=== PATIENT | male | born 1985 | race Caucasian/White ===

== ENCOUNTER 2017-01-09 00:25 | Emergency (ER) | payer SELFPAY ==
[~2017-01-09] VITALS: Ht 182.9 cm; Wt 146.4 kg
--- OUTSIDE RECORDS SUMMARY | 2017-01-09 00:29 | XMS REPORT | Referral Summary ---
Author Author [facility] Organization [facility] Address Unknown Phone Unavailable Care Team Providers Care Gameplay Programmer Name Role Phone No PCP, Pt States Primary Care Physician [phone] Encounter VC Date(s): 08/17/16 - 08/17/16 [facility] [address] [place] [address] [phone] Discharge Diagnosis: Hematemesis Discharge Diagnosis: Chest wall contusion Discharge Disposition: 01-Home or Self Care Attending Physician: Wilfred Orlando DO Admitting Physician: Wilfred Orlando DO Vital Signs Most recent to 1 oldest [Reference Range]: Temperature Oral 36.8 degC [35.8-37.3 degC] (08/17/16 12:04 AM) Peripheral Pulse 86 bpm Rate [60-100 bpm] (08/17/16 3:07 AM) Respiratory Rate 17 br/min [14-20 br/min] (08/17/16 3:07 AM) Blood Pressure 130/97 mmHg [90-140/60-90 mmHg] (08/17/16 3:07 AM) SpO2 98 % (08/17/16 3:07 AM) Problem List Condition Effective Dates Status Health Status Informant Stroke(Confirmed) Active patient Chest wall Active contusion(Confirmed) Hematemesis(Confirme Active d) HTN(Confirmed) Active patient Obesity Active (disorder)(Confirmed ) Tobacco Active patient user(Confirmed) Allergies, Adverse Reactions, Alerts Substance Reaction Severity Status Bee Stings anaphylaxis Severe Active cephalexin vomiting Active Dilaudid headaches Severe Active morphine anaphylaxis Severe Active Medications amLODIPine 10 mg oral tablet 1 tabs, Oral, Daily, # 30 tabs, 0 Refill(s) Start Date: 09/14/14 Status: Ordered Carafate 1 g oral tablet 2 g 2 tabs, Oral, QID, # 240 tabs, 0 Refill(s) Start Date: 08/17/16 Status: Ordered ibuprofen 0 Refill(s) Start Date: 01/29/14 Status: Ordered ibuprofen 800 mg oral tablet 800 mg 1 tabs, Oral, q8hr, # 30 tabs, 0 Refill(s) Start Date: 07/11/16 Status: Ordered LORazepam 0.5 mg oral tablet 0.5 tabs, Oral, Once, 0 Refill(s) Start Date: 11/20/14 Status: Ordered naproxen 250 mg oral tablet 1 tabs, Oral, BID, as needed for pain, Sup Md Figueroa, # 14 tabs, 0 Refill(s) Start Date: 11/20/14 Stop Date: 11/27/14 Status: Ordered Pepcid 20 mg oral tablet 20 mg 1 tabs, Oral, BID, # 60 tabs, 0 Refill(s) Start Date: 08/17/16 Status: Ordered potassium chloride 20 mEq oral tablet, extended release 20 mEq 1 tabs, Oral, BID, # 30 tabs, 0 Refill(s) Start Date: 08/17/16 Status: Ordered PriLOSEC 40 mg oral delayed release capsule 40 mg 1 caps, Oral, Daily, # 30 caps, 0 Refill(s) Start Date: 08/17/16 Status: Ordered Results Hematology Most recent to 1 oldest [Reference Range]: WBC [4.8-10.8 8.3 10*3/uL 10*3/uL] (08/17/16 1:08 AM) RBC [4.60-6.20] 5.13 (08/17/16 1:08 AM) Hgb [14.0-18.0 13.8 gm/dL gm/dL] *LOW* (08/17/16 1:08 AM) Hct [42.0-52.0 %] 42.5 % (08/17/16 1:08 AM) MCV [82.0-99.0 fL] 82.8 fL (08/17/16 1:08 AM) MCH [27.0-32.0 pg] 26.9 pg *LOW* (08/17/16 1:08 AM) MCHC [32.0-36.0 32.5 gm/dL gm/dL] (08/17/16 1:08 AM) RDW [11.5-14.5 %] 14.7 % *HI* (08/17/16 1:08 AM) Platelet [150-400 304 10*3/uL 10*3/uL] (08/17/16 1:08 AM) MPV [9.4-12.3 fL] 9.0 fL *LOW* (08/17/16 1:08 AM) Immature 0.1 % Granulocytes (08/17/16 1:08 AM) [0.0-1.0 %] Neutrophils [51-75 62 % %] (08/17/16 1:08 AM) Lymphocytes [20-46 26 % %] (08/17/16 1:08 AM) Monocytes [4-11 %] 9 % (08/17/16 1:08 AM) Eosinophils [0-4 %] 3 % (08/17/16 1:08 AM) Basophils [0-2 %] 0 % (08/17/16 1:08 AM) Neutro Absolute 5.19 10*3 [1.90-7.00 10*3] (08/17/16 1:08 AM) Lymph Absolute 2.14 10*3 [0.80-3.30 10*3] (08/17/16 1:08 AM) [place] Absolute 0.76 10*3 [0.30-1.00 10*3] (08/17/16 1:08 AM) Eos Absolute 0.22 10*3 [0.00-0.50 10*3] (08/17/16 1:08 AM) Baso Absolute 0.01 10*3 [0.00-0.20 10*3] (08/17/16 1:08 AM) Chemistry Most recent to 1 oldest [Reference Range]: Sodium Lvl [136-144 135 mEq/L mEq/L] *LOW* (08/17/16 1:08 AM) Potassium Lvl 2.6 mEq/L 1 [3.6-5.1 mEq/L] *LOW* (08/17/16 2:33 AM) Chloride [99-109 100 mEq/L mEq/L] (08/17/16 1:08 AM) CO2 [22-32 mEq/L] 24 mEq/L (08/17/16 1:08 AM) AGAP [3-20] 11 (08/17/16 1:08 AM) BUN [4-20 mg/dL] 11 mg/dL (08/17/16 1:08 AM) Glucose Lvl [70-100 109 mg/dL mg/dL] *HI* (08/17/16 1:08 AM) Creatinine Lvl 1.60 mg/dL [0.64-1.27 mg/dL] *HI* (08/17/16 1:08 AM) eGFR [>60] 50 2 *ABN* (08/17/16 1:08 AM) Calcium Lvl 8.9 mg/dL [8.6-10.0 mg/dL] (08/17/16 1:08 AM) Albumin Lvl [3.5-4.8 4.0 gm/dL gm/dL] (08/17/16 1:08 AM) Total Protein 6.9 gm/dL [6.1-7.9 gm/dL] (08/17/16 1:08 AM) Globulin [1.9-4.3 2.9 gm/dL gm/dL] (08/17/16 1:08 AM) ALT [17-63 U/L] 29 U/L (08/17/16 1:08 AM) AST [15-41 U/L] 101 U/L *HI* (08/17/16 1:08 AM) Alk Phos [26-104 75 U/L U/L] (08/17/16 1:08 AM) Bili Total [0.2-1.2 3.0 mg/dL 3 mg/dL] *HI* (08/17/16 1:08 AM) Creatinine Venous 0.8 mg/dL [0.7-1.2 mg/dL] (08/17/16 1:32 AM) 1Result Comment: Hemolyzed specimen. The following tests may be affected: ALT, AST, Ammonia, Iron, Potassium, LDH, Amylase, CPK, and Total Bilirubin. 2Result Comment: Multiply eGFR results by 1.21 for race. 3Result Comment: Naproxen, specifically the metabolite O-desmethylnaproxen, may cause spurious elevation in Total Bilirubin levels. Urinalysis Most recent to 1 oldest [Reference Range]: Type Venous (08/17/16 1:03 AM) Blood Bank Results Most recent to 1 oldest [Reference Range]: ABO/Rh A POS (08/17/16 1:08 AM) Antibody Screen Tube NEG (08/17/16 1:08 AM) Immunizations No data available for this section Procedures Procedure Date Related Diagnosis Body Site Ankle joint operations Knee joint operation Social History Social History Type Response Smoking Status Current every day smoker; Tobacco use per day: Less than 1/4 pack1 1Quit x12 years ago Assessment and Plan No data available for this section
--- OUTSIDE RECORDS SUMMARY | 2017-01-09 00:29 | XMS REPORT | Referral Summary ---
Author Author [facility] Organization [facility] Address Unknown Phone Unavailable Care Team Providers Care Cap Sewer Name Role Phone No PCP, Pt States Primary Care Physician [phone] Encounter VC Date(s): 07/11/16 - 07/11/16 [facility] [address] [place] [address] Discharge Diagnosis: Left ankle sprain Discharge Diagnosis: Left ankle pain Discharge Disposition: 01-Home or Self Care Attending Physician: Louis Cano MD Admitting Physician: Louis Cano MD Vital Signs Most recent to 1 oldest [Reference Range]: Temperature Oral 36.7 degC [35.8-37.3 degC] (07/11/16 1:49 PM) Peripheral Pulse 85 bpm Rate [60-100 bpm] (07/11/16 3:43 PM) Respiratory Rate 18 br/min [14-20 br/min] (07/11/16 3:43 PM) Blood Pressure 148/79 mmHg [90-140/60-90 mmHg] *HI* (07/11/16 3:43 PM) SpO2 97 % (07/11/16 3:43 PM) Problem List Condition Effective Dates Status Health Status Informant Stroke(Confirmed) Active patient HTN(Confirmed) Active patient Obesity Active (disorder)(Confirmed ) Tobacco Active patient user(Confirmed) Allergies, Adverse Reactions, Alerts Substance Reaction Severity Status Bee Stings anaphylaxis Severe Active cephalexin vomiting Active Dilaudid headaches Severe Active morphine anaphylaxis Severe Active Medications amLODIPine 10 mg oral tablet 1 tabs, Oral, Daily, # 30 tabs, 0 Refill(s) Start Date: 09/14/14 Status: Ordered ibuprofen 0 Refill(s) Start Date: [...] Date: 11/20/14 Stop Date: 11/27/14 Status: Ordered Results No data available for this section Immunizations No data available for this section Procedures Procedure Date Related Diagnosis Body Site Ankle joint operations Knee joint operation Social History Social History Type Response Smoking Status Current every day smoker; Tobacco use per day: Less than 1/4 pack1 1Quit x12 years ago Assessment and Plan No data available for this section
--- OUTSIDE RECORDS SUMMARY | 2017-01-09 00:29 | XMS REPORT | Continuity of Care Document ---
Author Author [facility] Organization [facility] Address Unknown Phone Unavailable Allergies Active Description Code Type Severity Reaction Onset Reported/Identified Relationship to Patient Clinical Status Yes cephalexin NKMA N/A vomiting 12/26/2013 Yes Bee Stings NKMA Severe anaphylaxis 09/14/2014 Yes Dilaudid NKMA Severe headaches 09/14/2014 Yes morphine NKMA Severe anaphylaxis 09/14/2014 Medications Medication Packaging Start Date Stop Date Route Dosage Sig ibuprofen(ibuprofen) 01/29/2014 HYDROcodone-acetaminophen(HYDROcodone-acetaminophen 5 mg- 325 mg oral tablet) 1 tabs 01/29/2014 02/09/2014 Oral 1 tabs, Oral, q4hr, 12 tabs, PRN: Pain Moderate (4-6) penicillin V potassium(penicillin V potassium 500 mg oral tablet) 1 tabs 201302/05/2014 Oral 500 mg 1 tabs, Oral, q6hr, 40 tabs clindamycin(clindamycin 150 mg oral capsule) 2 caps 01/29/2014 02/08/2014 Oral 300 mg 2 caps, Oral, QID, for infection, 80 caps amLODIPine(amLODIPine 10 mg oral tablet) 1 tabs 09/14/2014 Oral 10 mg 1 tabs, Oral, Daily, 30 tabs amLODIPine(amLODIPine) 1 tabs 09/14/2014 09/14/2014 Oral 10 mg 10 mg, Oral, Once LORazepam(LORazepam 0.5 mg oral tablet) 0.5 tabs 11/20/2014 Oral 0.25 mg 0.5 tabs, Oral, Once ondansetron(Zofran) 2 mL 11/20/2014 11/20/2014 IV Push 4 mg 4 mg, IV Push, Once ketorolac(Toradol) 1 mL 11/20/2014 11/20/2014 IV Push 30 mg 30 mg , IV Push, Once cyclobenzaprine(cyclobenzaprine 10 mg oral tablet) 1 tabs 11/20/2014 11/25/2014 Oral 10 mg 1 tabs, Oral, TID, Sup Md Figueroa, 15 tabs, PRN: as needed for spasm naproxen(naproxen 250 mg oral tablet) 1 tabs 11/20/20142014 Oral 250 mg 1 tabs, Oral, BID, Sup Md Figueroa, 14 tabs, PRN: as needed for pain HYDROcodone-acetaminophen([place] 5 mg-325 mg oral tablet) 1 tabs 07/11/2016 07/11/2016 Oral 1 tabs, Oral, Once ibuprofen(ibuprofen 800 mg oral tablet) 1 tabs 07/11/2016 Oral 800 mg 800 mg=1 tabs, Oral, q8hr, 30 tabs, 0 Refill(s) famotidine(Pepcid) 2 mL 08/17/2016 08/17/2016 IV Push 20 mg 20 mg =2 mL, IV Push, Once omeprazole(PriLOSEC 40 mg oral delayed release capsule) 1 caps 08/17/2016 Oral 40 mg 40 mg=1 caps, Oral, Daily, 30 caps, 0 Refill(s) famotidine(Pepcid 20 mg oral tablet) 1 tabs 08/17/2016 Oral 20 mg 20 mg=1 tabs, Oral, BID, 60 tabs, 0 Refill(s) sucralfate(Carafate 1 g oral tablet) 2 tabs 08/17/2016 Oral 2 g 2 g=2 tabs, Oral, QID, 240 tabs, 0 Refill(s) ondansetron(Zofran 4 mg oral tablet) 1 tabs 08/17/20162015 Oral 4 mg 4 mg=1 tabs, Oral, q4hr, PRN: Nausea or Vomiting, 30 tabs, 0 Refill (s) oxyCODONE-acetaminophen(Percocet 7.5/325 oral tablet) 1 tabs 08/17/2016 08/18/2016 Oral 1 tabs, Oral, q6hr, PRN: as needed for pain, 20 tabs, 0 Refill(s) potassium chloride(potassium chloride 20 mEq oral tablet, extended release) 2 tabs 08/17/2016 08/17/2016 Oral 40 mEq 40 mEq=2 tabs, Oral, Once potassium chloride(potassium chloride 20 mEq oral tablet, extended release) 1 tabs 08/17/2016 Oral 20 mEq 20 mEq=1 tabs, Oral, BID, 30 tabs, 0 Refill(s) Problems Date Dx Coded Attending Type Code Diagnosis Diagnosed By 06/15/2012 Chidi Jacobs MD Final 401.9 HYPERTENSION NOS 06/15/2012 Chidi Jacobs MD Final 989.5 TOXIC EFFECT VENOM 06/15/2012 Chidi Jacobs MD External E905.3 HORNET/WASP/BEE STING 12/31/2013 Tor Lees MD Final 278.00 OBESITY NOS 12/31/2013 Tor Lees MD Final 401.9 HYPERTENSION NOS 12/31/2013 Nabeel ALLRED, Tor Final 466.0 ACUTE BRONCHITIS 12/31/2013 Tor Lees MD Final 473.9 CHRONIC SINUSITIS NOS 12/31/2013 Tor Lees MD Final 491.9 CHRONIC BRONCHITIS NOS 12/31/2013 Tor Lees MD Admitting 786.2 COUGH 12/31/2013 Nabeel ALLRED Tor 787.03 VOMITING ALONE 09/15/2014 Evens Champion MD Reason 311 DEPRESSIVE DISORDER, NOT ELSEWHERE CLASSIFIED 09/15/2014 Evens Champion MD Final 401.9 UNSPECIFIED ESSENTIAL HYPERTENSION 09/15/2014 Evens Champion MD Final V62.84 Suicidal ideation 11/21/2014 Reason 787.01 NAUSEA WITH VOMITING 11/21/2014 Final 848.8 OTHER SPECIFIED SITES OF SPRAINS AND STRAINS 07/14/2016 Cano Howard Final F17.210 Nicotine dependence, cigarettes, uncomplicated 07/14/2016 Cano Howard Reason M25.572 Pain in left ankle and joints of left foot 07/14/2016 Cano Howard Final S93.402A Sprain of unspecified ligament of left ankle, initial encounter 07/14/2016 Cano Howard Final X50.9XXA Other and unspecified overexertion or strenuous movements or postures, init 07/14/2016 Cano Howard Final Y92.[address] the [address] of occurrence of the external cause 08/18/2016 Orlando David Final F17.210 Nicotine dependence, cigarettes, uncomplicated 08/18/2016 Orlando David Final K92.0 Hematemesis 08/18/2016 Orlando David Reason R11.2 Nausea with vomiting, unspecified 08/18/2016 Orlando David Final S20.219A Contusion of unspecified front wall of thorax, initial encounter 08/18/2016 Orlando David Final X58.XXXA Exposure to other specified factors, initial encounter Procedures Results Encounters ACCT No. Visit Date/Time Discharge Status Pt. Type Provider Facility Loc./Unit Complaint [id number] 12/31/2013 08:41:00 2013 09:20:00 DIS Emergency Tor Lees MD [facility] [id number] 06/15/2012 14:13:00 2011 15:45:00 DIS Emergency Chidi Jacobs MD [facility]
--- OUTSIDE RECORDS SUMMARY | 2017-01-09 00:29 | XMS REPORT | Referral Summary ---
Author Organization Unknown Address Unknown Phone Unavailable Care Team Providers Care Health Informatics Specialist Name Role Phone No PCP, States Primary Care Physician [phone] Encounter VC Date(s): 09/14/14 - 09/14/[address] [id number] Discharge Diagnosis: Depression Discharge Diagnosis: Suicidal ideation Discharge Diagnosis: Hypertension Discharge Disposition: Home or Self Care Attending Physician: Evens Champion MD Admitting Physician: Evens Champion MD Vital Signs Most recent to 1 oldest [Reference Range]: Temperature Oral 36.8 degC [35.8-37.3 degC] (09/14/14 2:29 PM) Peripheral Pulse 103 bpm Rate [60-100 bpm] *HI* (09/14/14 2:29 PM) Heart Rate Monitored 109 bpm [60-100 bpm] *HI* (09/14/14 4:38 PM) Respiratory Rate 16 br/min [14-20 br/min] (09/14/14 2:29 PM) Blood Pressure 159/98 mmHg [90-140/60-90 mmHg] *HI* (09/14/14 4:38 PM) Mean Arterial 116 mmHg Pressure, Cuff (09/14/14 4:38 PM) Most recent to 1 oldest [Reference Range]: SpO2 96 % (09/14/14 2:29 PM) Problem List Condition Effective Dates Status [...] 0 Refill(s) Start Date: 01/29/14 Status: Ordered Results No data available for this section Immunizations No data available for this section Procedures Procedure Date Related Diagnosis Body Site Ankle joint operations Knee joint operation Social History Social History Type Response Smoking Status Former smoker1 1Quit x12 years ago Assessment and Plan No data available for this section
[2017-01-09 00:33] VITALS: Ht 182.9 cm; Wt 146.4 kg
[2017-01-09] MEDS ORDERED: PROCHLORPERAZINE 10mg/2ml INJECTION IV ONE (00:45)
[2017-01-09] MEDS ORDERED: KETOROLAC 30mg/ml INJECTION IV ONE (00:45)
[2017-01-09] MEDS ORDERED: NORMAL SALINE 1,000 ML IV ONE (00:45)
--- NOTE | 2017-01-09 00:58 | ERPDOC ---
Departure Disposition Decision Date: January 09, 2017 Disposition Decision Time: 02:10 Disposition: 01 DISCHARGED HOME, SELF-CARE Impression Impression Impression: Primary Impression: GERD (gastroesophageal reflux disease) Esophagitis presence: with esophagitis Qualified Codes: K21.0 - Gastro- esophageal reflux disease with esophagitis Additional Impression: Esophageal spasm Severity: Severe Condition: Improved Seen By: Physician only Patient Instructions: Esophageal Spasm (ED), Gastroesophageal Reflux Disease ( ED) Problems/Meds/Labs Reviewed?: Yes Medications reviewed and manag: Yes Additional Instructions: Compazine 10 mg one tablet every 6-8 hours as needed for cramps or nausea Take Prilosec OR Prevacid daily Take Pepcid 40 mg daily Follow up with your doctor in the next week Follow up care ordered?: Yes Mental Status: Alert Scripts Prochlorperazine Maleate (Compazine) 10 Mg Tablet 10 MG PO QID, #30 TAB 0 Refills Prov: LILLIE WRIGHT MD 01/09/17 HPI - Chest Pain General Chief Complaint: Chest Pain Stated Complaint: CHEST PAIN Time Seen by Provider: 00:34 Source: patient Exam Limitations: no limitations HPI - Chest Pain Initial Comments The patient has recently moved from [place] to the [facility], presents tonight with complaints of chest pain. Patient has had epigastric pain all day, with nausea and finally vomiting and radiation of pain into the chest tonight. Patient tried to take a dose of Prevacid and Prilosec together, as well as is small, and vomited it all up. A history of GERD, been given apparently confusing information about what medication to take and how to take it from his previous clinic in [place], quite loopy clinic. According to the patient, he was instructed to use his Pepcid until it ran out, and then uses Prilosec and Prevacid together as needed. Occurred At: home Onset/Timing: Rapid Duration: 6-12 hrs Activities at Onset/Context: rest Location: substernal 1 - Pain and tenderness 2 - Chest Pain Radiation: no radiation Nitro Today/Relief: no nitro taken today Aspirin Treatment Today: contraindicated Prior Chest Pain/Cardiac Caitlyn: no prior chest pain Hx of Similar Symptoms: No Allergies: Coded Allergies: morphine (Verified Allergy, Severe, CARDIAC ARREST, 01/09/17) cephalexin (Verified Allergy, Unknown, dyspnea, 01/09/17) hydromorphone (Verified Allergy, Unknown, MIGRAINE, 01/09/17) Viagra/ED med in past 36 hrs: No Past History Patient Medical History Problem List Updates: Anaphylactic reaction with CVA at 16 years old Morbid obesity GERD Symptomatic hypoglycemia Past Medical History GI: GERD Neurological: CVA Surgical History Denies Surgeries Social History Smoking Status: Never smoker Does patient use chewing tobac: No Second Hand Exposure: No Substance Use Type: does not use Alcohol Intake: none Record Review Pertinent history updated: Yes Review of Systems Constitutional Constitutional: DENIES: appetite decrease, appetite increase, chills, dizziness , fever, weakness ENMT Ears: DENIES: pain Hearing: DENIES: hearing loss, tinnitus Balance: DENIES: vertigo Mouth/Throat: DENIES: change in swallowing, change in voice, hoarsness, painful swallowing, sore throat Cardiovascular Cardiac: chest pain, DENIES: dyspnea on exertion Rhythm/Rate: DENIES: irregular beat, palpitations, tachycardia Vascular: DENIES: pedal edema Pulmonary Respiratory: DENIES: cough, dyspnea, pleuritic chest pain GI Upper Abdomen: nausea, pain, vomiting, DENIES: dysphagia, food intolerances, heartburn/indigestion, hematemesis Lower Abdomen: DENIES: blood in stool, estefany-colored stools, constipation, diarrhea, melena, pain, painful BM General: DENIES: burning, dysuria, frequency, pain, urgency Musculoskeletal General: DENIES: cramps, joint pain, joint swelling, pain, weakness Integumentary Skin: DENIES: rash, sores Neurological General: DENIES: headache, numbness, tingling, vertigo, weakness Physical Exam General General Nourishment: well nourished, well developed, appears stated age, obese General Body Habitus: well groomed Vitals and Pain First Documented Vital Signs Date Time Temp Pulse Resp B/P Pulse Ox O2 Delivery O2 Flow Rate FiO2 01/09/17 00:33 98.5 22 98 Room Air Weight: Kilograms: Height (feet): Height (inches): Triage Pain Scale: RN VS reviewed by Provider: Yes Normal Exams: Head: Normocephalic w/o trauma Eyes: Pupils are PERRLA w/ EOMI, No scleral icterus, irritation, or foreign bodies noted ENMT: No facial trauma, nasal exudates, pharyngeal erythema, or exudates are noted Neck: Full range of motion, without adenopathy, JVD, bruits or thyromegaly Chest/Resp: Clear all arrieta, with good airflow, and symmetry bilaterally CV: Regular rate and rhythm, without murmur or gallop, Pulses 2+ all extremities, capillary refill, <2 seconds all ext., no pedal edema noted Lymphatic: No lymphadenopathy, or lymphedema noted Musculoskeletal: No tenderness, or deformity noted, good range of motion, all extremities Integumentary: No rashes, hives, or bruising noted, hair and nails, without abnormality Neurologic: Patient is alert, and oriented, cranial nerves, motor/sensory/ cerebellar, exams w/o gross deficits, to observation Psychiatric: Patient exhibits, appropriate attention, emotion and affect Abdomen (brief) Abdominal Brief: FOUND: bowel normo active x4, soft, tender (epigastric tenderness, mild guarding, palpation reproduces the patient's chest symptoms), NOT FOUND: distended, hepatosplenomegaly Progress Results/Orders Orders Procedure Category Date Status Time Iv Lock (Ed Only) EDM 01/09/17 Transmitted 00:39 Cbc W/Auto LAB 01/09/17 Complete Diff-Reflex Manual Cmp - Comprehensive LAB 01/09/17 Complete Metabolic Troponin I W LAB 01/09/17 Complete Hemolysis Index Lipase LAB 01/09/17 Complete EKG EKG 01/09/17 Logged Chest, Pa & Lateral RAD 01/09/17 Taken Ketorolac (Toradol) PHA 01/09/17 Complete 00:45 Prochlorperazine PHA 01/09/17 Complete (Compazine) 00:45 Normal Saline (Normal PHA 01/09/17 Complete Saline Iv) 00:45 Nitroglycerin PHA 01/09/17 In Process (Nitrostat) 00:45 Lab Results Laboratory Tests Test 01/09/17 00:00 White Blood Count 11.0T/MM3 Red Blood Count 5.00M/MM3 Hemoglobin 12.9GM/DL Hematocrit 42.0% Mean Corpuscular Volume 84.0UM3 Mean Corpuscular Hemoglobin 25.8UUG Mean Corpuscular Hemoglobin Concent 30.7GM/DL RDW Standard Deviation 44.0FL Platelet Count 389T/MM3 Mean Platelet Volume 9.0UM3 Immature Granulocyte % (Auto) 0.2% Neutrophils (%) (Auto) 69.9% Lymphocytes (%) (Auto) 18.9% Monocytes (%) (Auto) 6.6% Eosinophils (%) (Auto) 4.2% Basophils (%) (Auto) 0.2% Absolute Immature Granulocyte (auto 0.02T/MM3 Absolute Neutrophils (auto) 7.7T/MM3 Absolute Lymphocytes (auto) 2.1T/MM3 Absolute Monocytes (auto) 0.7T/MM3 Absolute Eosinophils (auto) 0.5T/MM3 Absolute Basophils (auto) 0.0T/MM3 Turbidity < 20 Sodium Level 150MEQ/L Potassium Level 3.7MEQ/L Chloride Level 107MEQ/L Carbon Dioxide Level 27MEQ/L Anion Gap 16MEQ/L Blood Urea Nitrogen 10.0MG/DL Creatinine 0.7MG/DL Glomerular Filtration Rate Calc 130 BUN/Creatinine Ratio 14RATIO Glucose Level 125MG/DL Calculated Osmolality 288MOSM/KG Calcium Level 9.4MG/DL Total Bilirubin 0.40MG/DL Icterus Index < 2 Aspartate Amino Transf (AST/SGOT) 28U/L Alanine Aminotransferase (ALT/SGPT) 35U/L Alkaline Phosphatase 80U/L Troponin I < 0.012ng/ml Total Protein 7.6G/DL Albumin 4.4G/DL Globulin 3.2G/DL Albumin/Globulin Ratio 1.4RATIO Lipase 50U/L Chemistry Specimen Hemolysis < 15 Medications Current ED Medications Ketorolac Tromethamine (Toradol) 30 mg O ONCE IV ; Start 01/09/17 at 00:45; Stop 01/09/17 at 00:47; Status DC Prochlorperazine Edisylate 10 mg 10 mg O ONCE IV Last administered on 01:04; Start 01/09/17 at 00:45; Stop 01/09/17 at 00:47; Status DC Sodium Chloride (Normal Saline IV) 1,000 ml @ 0 mls/hr Q0M ONCE IV Last administered on 01/09/17 00:45; Start 01/09/17 at 00:45; Stop 01/09/17 at 00:47 ; Status DC Nitroglycerin (Nitrostat) 0.4 mg Q5MIN PRN SL CHEST PAIN Last administered on 01:17; Start 01/09/17 at 00:45 Progress Progress Patient given Toradol 30 mg, Compazine 30 mg, and 1 L normal saline IV fluid bolus with sublingual nitroglycerin for symptoms - chest pain completely resolved, nausea resolved, but patient has mild persistent epigastric pain. Given 300 mg Zantac and Maalox 30 ML's - EKG shows a normal sinus rhythm without ischemia, ectopy, or infarction - CBC - n CMP/L -n Troponin - n Chest x-ray - n LILLIE WRIGHT MD January 09, 2017 00:58
[2017-01-09] MEDS: NITROGLYCERIN 0.4 MG SUBLINGUAL TABLET SL PRN ×2 (01:05→01:17)
[2017-01-09 01:12] LABS: ALBUMIN 4.4 G/DL (3.5-5.0); ALBUMIN/GLOBULIN RATIO 1.4 RATIO (1.1-2.2); ALKALINE PHOSPHATASE 80 U/L (38-126); ALT (SGPT) 35 U/L (21-72); ANION GAP 16 MEQ/L (5-15); AST (SGOT) 28 U/L (17-59); BUN/CREATININE RATIO 14 RATIO (6-26); CALCIUM 9.4 MG/DL (8.4-10.2); CHLORIDE 107 MEQ/L (98-107); CO2 - CARBON DIOXIDE 27 MEQ/L (22-30); CREATININE 0.7 MG/DL (0.8-1.5); GLOMERULAR FILTRATION RATE 130; GLUCOSE 125 MG/DL (75-110); LIPASE 50 U/L (23-300); POTASSIUM 3.7 MEQ/L (3.6-5); SODIUM 150 MEQ/L (134-144); TOTAL PROTEIN 7.6 G/DL (6.3-8.2)
[2017-01-09 01:15] LABS: BASOPHILS % (AUTO) 0.2 % (0-2); EOSINOPHILS # (AUTO) 0.5 T/MM3 (0-0.5); EOSINOPHILS % (AUTO) 4.2 % (0-4); HGB - HEMOGLOBIN 12.9 GM/DL (13.5-17.5); IMMATURE GRANULOCYTE # (AUTO) 0.02 T/MM3 (0.00-0.03); IMMATURE GRANULOCYTE % (AUTO) 0.2 % (0.0-0.5); LYMPHOCYTES # (AUTO) 2.1 T/MM3 (1-4.8); LYMPHOCYTES % (AUTO) 18.9 % (23-45); MEAN CORPUSCULAR HGB 25.8 UUG (26-34); MEAN CORPUSCULAR HGB CONC(MCHC 30.7 GM/DL (31-37); MONOCYTES # (AUTO) 0.7 T/MM3 (0-0.8); MONOCYTES % (AUTO) 6.6 % (0-9.0); NEUTROPHILS #(AUTO)-ABSOLUTE 7.7 T/MM3 (1.8-7.7); NEUTROPHILS % (AUTO) 69.9 % (33-66)
--- NOTE | 2017-01-09 01:23 | NUR ---
IMAGING PT TO IMAGING AT THIS TIME
--- NOTE | 2017-01-09 01:35 | NUR ---
IMAGING PT RETURN FROM IMAGING AT THIS TIME.
[2017-01-09] MEDS ORDERED: PROC-14 PO (02:11)
[2017-01-09] MEDS ORDERED: RANITIDINE 150 MG TABLET PO ONE (02:15)
[2017-01-09] MEDS ORDERED: MAG-AL + SIM LIQUID 30 ML UDC PO ONE (02:15)
[2017-01-09 02:21] VITALS: BP 170/78; PULSE 78; RESP 22; TEMP 98.5; O2SAT 100
--- NOTE | 2017-01-09 02:21 | NUR ---
DEPART PT GIVEN DI FOR GERD ESOPHAGEAL SPASM, COMPAZINE, F/U. RX PROVIDED FOR COMPAZINE. PT VERBALIZES UNDERSTANDING OF DI. QUESTIONS ASKED/ANSWERED - DENIES FURTHER QUESTIONS/NEEDS AT THIS TIME. IV SITE REMOVED. PERSONAL BELONGINGS GATHERED. PT AMBULATED/ESCORTED TO ED EXIT. GAIT STABLE, NO SIGN OF DISTRESS AT THIS TIME.
--- OUTSIDE RECORDS SUMMARY | 2017-01-09 02:31 | XMS REPORT | Continuity of Care Document ---
Author Author [facility] Organization [facility] Address Unknown Phone Unavailable Allergies Active Description [...] 14 tabs, PRN: as needed for pain HYDROcodone-acetaminophen([place] 5 mg-325 mg oral tablet) 1 tabs [...] MD External E905.3 HORNET/WASP/BEE STING 12/31/2013 Tor eLes MD Final 278.00 OBESITY NOS 12/31/2013 Tor [...] Status Pt. Type Provider Facility Loc./Unit Complaint [id number] 12/31/2013 08:41:00 2013 09:20:00 DIS Emergency Tor Lees MD [facility] [id number] 06/15/2012 14:13:00 2011 15:45:00 DIS Emergency Chidi Jacobs MD [facility]
[2017-01-09] MEDS ORDERED: NO ROUTINE MEDS (03:44)
--- NOTE | 2017-01-09 07:48 | DI ---
INDICATION: ITS.REASON: chest pain PROCEDURE: CHEST 2-VIEWS UPRIGHT (PA \T\ LAT) Encounter: Initial COMPARISON: None FINDINGS: The lungs are clear without evidence of focal abnormal airspace opacity. There is no pleural effusion or pneumothorax. The heart size, mediastinal contours and pulmonary vascularity are within normal limits. There is no significant skeletal abnormality. IMPRESSION: No acute cardiopulmonary disease. .
== END 2017-01-09 02:21 | disposition home or self-care (01) ==
LOC: ED 00:25
DX: K21.0 Gastro-esophageal reflux disease with esophagitis (principal); K22.4 Dyskinesia of esophagus
CPT/HCPCS: 80053; 83690; 84484; 85025; 93005